=== PATIENT | male | born 2000 | race Caucasian/White ===

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

== ENCOUNTER 2022-11-26 00:47 | Emergency (ER) | payer BC, SELFPAY ==
[2022-11-26 00:48] VITALS: BP 132/85; PULSE 86; RESP 18; TEMP 35.8; O2SAT 98; BMI 18.3
--- NOTE | 2022-11-26 02:01 | EDS_ITS ---
HPI HPI - Psych History of Present Illness Chief Complaint: Suicidal Informant: patient Narrative Narrative: Patient presents because of suicidal thoughts and ideation. He states normally he would never kill himself, but he states occasionally I trick myself, basically saying that he felt so poorly that he wanted to kill himself but he does not think he would be able to. However tonight he gestured attempting to choke himself but he states this only lasted 5 or 10 seconds until he gave up. He has no physical symptoms now. Denies any recent illness. Has not drink any alcohol tonight. Thinks maybe he had a panic attack earlier and it made him feel tingly all over that is starting to fade. Denies any illicit drug use. He sees a therapist for his depression and anxiety. [facility] Medical History Depression Home Medications fluoxetine 20 mg capsule 20 mg PO DAILY 11/26/22 [History Last Taken Unknown] lorazepam 1 mg tablet (Ativan) 1 mg PO TID PRN anxiety #12 tabs 11/26/22 [Rx Last Taken Unknown] Allergy/AdvReac Type Severity Reaction Status Date / Time No Known Allergies Allergy Verified 11/26/22 00:48 Social History Smoking Status: Never smoker ROS ROS ED Constitutional Constitutional ED: Denies chills or fever(s) Eyes Eyes: Denies change in vision or diplopia ENT ENT ED: Denies rhinorrhea or sore throat Cardiovascular Cardiovascular: Denies chest pain or palpitations Respiratory/Chest Respiratory/Chest: Denies cough or dyspnea Gastrointestinal Gastrointestinal: Denies abdominal pain, diarrhea, nausea or vomiting Genitourinary Genitourinary ED: Denies dysuria or hematuria Musculoskeletal Musculoskeletal: Denies back pain or neck pain Integumentary Denies abscess or rash Neurologic Neurologic: Reports paresthesias; Denies headache(s) or weakness Psychiatric Psychiatric: Reports anxiety, depression, suicidal ideation and suicidal thoughts; Denies homicidal ideation EXAM Physical Exam Const Vital Signs: 11/26/22 00:48 11/26/22 02:09 Temperature 96.4 F L Temperature Source Temporal Pulse Rate 86 Respiratory Rate 18 18 Blood Pressure 132/85 H Blood Pressure Mean 100 Pulse Ox 98 Oxygen Delivery Method Room Air Positive well nourished and well developed General Appearance ED: well developed and NAD HEENT Reports moist mucous membranes normocephalic and atraumatic Eyes PERRL and EOMs intact bilaterally General Eye ED: Negative for scleral icterus Neck no lymphadenopathy and supple Resp normal respiratory effort and clear to auscultation bilaterally Cardio no murmurs Rate: regular rate Rhythm: regular rhythm GI non-tender and non-distended Auscultation: normoactive bowel sounds Palpation: soft Back/Spine no CVA tenderness and normal ROM Extremity normal to inspection General Extremety ED: Negative for edema General Extremity: Negative for edema Neuro oriented x3, CN's II-XII intact bilaterally, no sensory deficits noted and gait normal Sensorium / Orientation: alert Motor Exam: strength 5/5 throughout Psych mental status grossly normal, thought process normal, cooperative, activity/motor behavior normal and denies homicidal ideation Speech: normal speech Mood & Affect: depressed and anxious Thought Process: normal thought process Thought Content: suicidality Attention / Concentration: attention grossly intact Memory / Cognition: memory grossly intact Insight: questionable Skin Lesions: no lesions Rashes: no rashes MDM MDM MDM Narrative Medical decision making narrative: Other than marijuana on his toxicology screen, the rest of his labs are unr emarkable and he is medically cleared. Crisis evaluated. His odd affect made it difficult for them to make recommendations, but in the end, the patient states to them as well as myself I could never kill myself. I think the patient is having a severe anxiety attack, leading to suicidal thoughts which she agrees with, crisis spoke with him further and he agrees to contract for safety, and they were able to mutually come up with a safety plan. Lives with mother right now apparently he was okay with that as well, asks if we would be okay prescribing him some Ativan to use as needed for anxiety which we gave him here in the ER, which I am fine with. Lab Data Attestation: I reviewed the patient's lab results. Labs: Laboratory Results - last 24 hr 11/26/22 02:05 WBC 10.6 RBC 4.75 Hgb 14.5 Hct 42.1 MCV 88.6 MCH 30.5 MCHC 34.4 RDW Std Deviation 36.9 RDW Coeff of Ed 11.4 L Plt Count 271 MPV 9.5 Immature Gran % (Auto) 0.300 Neut % (Auto) 72.3 H Lymph % (Auto) 17.4 L [place] % (Auto) 8.9 Eos % (Auto) 0.7 Baso % (Auto) 0.4 Absolute Neuts (auto) 7.7 Absolute Lymphs (auto) 1.85 Nucleated RBC % 0 Sodium 137 Potassium 3.0 L Chloride 103 Carbon Dioxide 24.0 Anion Gap 10 BUN 14 Creatinine 0.93 Estim Creat Clear Calc 115.28 Est GFR (MDRD) Af Amer 131 Est GFR (MDRD) Non-Af 108 BUN/Creatinine Ratio 15.0 Glucose 109 H Calcium 9.5 Urine Opiates Screen NEGATIVE Urine Methadone Screen NEGATIVE Ur Barbiturates Screen NEGATIVE Ur Phencyclidine Scrn NEGATIVE Ur Amphetamines Screen NEGATIVE MDMA (Ecstasy) Screen NEGATIVE U Benzodiazepines Scrn NEGATIVE Urine Cocaine Screen NEGATIVE U Cannabinoids Screen POSITIVE H Ur Drug Screen Comment Ethyl Alcohol < 3.0 Management Discussion w/another healthcare provider: distillery worker general/Case management Discharge Plan Triage Chief Complaint: Suicidal ED Provider: Anderson Flanagan Dx/Rx/DC Orders Clinical Impression: Anxiety, Suicidal thoughts Instructions: Anxiety Disorders Tx, CONTRACT, No Harm Prescriptions: New lorazepam [Ativan] 1 mg tablet 1 mg PO TID PRN (Reason: anxiety) Qty: 12 0RF No Action fluoxetine 20 mg capsule 20 mg PO DAILY Patient Comments: TAKE 1 CAPSULE BY MOUTH ONCE DAILY Primary Care Provider: Darron Barrow Referrals: Darron Barrow MD [Primary Care Provider] - As soon as possible (and/or your therapist/counselor) Disposition Disposition: Home, Self Care
[2022-11-26 02:09] VITALS: RESP 18
[2022-11-26 02:16] LABS: Absolute Lymphocyte Count 1.85 X10^3/uL (0.83-4.51); Absolute Neutrophil Count 7.7 X10^3/uL (2.0-7.7); Basophil# 0.04 X10^3/uL; Basophil% 0.4 % (0-1); Eosinophil# 0.07 X10^3/uL; Eosinophils% 0.7 % (0-5); Hematocrit 42.1 % (40-54); Hemoglobin 14.5 g/dL (13.0-16.5); Lymphocyte # 1.85 X10^3/ul (0.83-4.51); Lymphocyte % 17.4 % (19-41); Mean Corp Hgb Conc 34.4 g/dL (32-36); Mean Corpuscular Hgb 30.5 pg (27.0-32.0); Mean Corpuscular Volume 88.6 fL (80-94); Mean Platelet Vol. 9.5 fl (6.2-12.0); Monocyte# 0.95 X10^3/uL; Monocyte% 8.9 % (0-10); NRBC Flagged by Analyzer 0 % (0-5); Neutrophil # 7.69 X10^3/uL (2.7-7.7); Neutrophil % 72.3 % (47-70); Platelet Count 271 K/mm3 (150-450); RBC Distribution Width CV 11.4 % (11.6-14.6); RBC Distribution Width SD 36.9 fl (35.1-43.9); Red Blood Count 4.75 M/mm3 (4.6-6.2); White Blood Count 10.6 K/mm3 (4.4-11.0)
[2022-11-26 02:32] LABS: Amphetamine Urine VISTA NEGATIVE (<1000 ng/mL); Barbiturate Urine VISTA NEGATIVE (< 200 ng/mL); Benzodiazepine Urine VISTA NEGATIVE (< 200 ng/mL); Cocaine Urine VISTA NEGATIVE (< 300 ng/mL); Ecstacy Urine VISTA NEGATIVE (< 500 ng/mL); Methadone Urine VISTA NEGATIVE (< 300 ng/mL); PCP Urine VISTA NEGATIVE (< 25 ng/mL); THC Urine VISTA POSITIVE (< 50 ng/mL); Vista UDS pH Range 7
[2022-11-26 02:37] LABS: Anion Gap 10 (5-15); BUN 14 mg/dL (7-18); Calcium,Total 9.5 mg/dL (8.5-10.1); Chloride 103 mmol/L (98-107); Creatinine, Serum 0.93 mg/dL (0.70-1.30); EST Glomerular Filtration Rate 108 mL/min (>60); Est Glom Filt Rate - Afr Amer 131 mL/min (>60); Estimated Creatinine Clearance 115.28 ml/min; Glucose 109 mg/dL (74-106); Sodium Level 137 mmol/L (136-145)
[2022-11-26 02:43] LABS: Alcohol, Blood (Medical)-Serum < 3.0 mg/dL
--- NOTE | 2022-11-26 03:03 | NURSING ---
CALLED CRISIS AT 0300
[2022-11-26] MEDS: LORazepam 1 MG Tablet PO (03:44)
== END 2022-11-26 05:59 | disposition home or self-care (01) ==
PROVIDERS: Emergency Provider Emergency Medicine; PCP Pediatrics; Visit Provider Emergency Medicine
DX: F41.9 Anxiety disorder, unspecified (principal); R45.851 Suicidal ideations; Z79.899 Other long term (current) drug therapy
CPT/HCPCS: 80048; 80307; 82077; 85025; 87811; 99285

== ENCOUNTER 2022-11-26 16:38 | Emergency (ER) | payer BC, SELFPAY ==
[2022-11-26 16:40] VITALS: BP 99/67; PULSE 90; RESP 18; TEMP 36.4; O2SAT 100; BMI 18.1
--- NOTE | 2022-11-26 16:50 | NURSING ---
CALLED CRISIS ABOUT PATIENT
--- NOTE | 2022-11-26 17:12 | EDS_ITS ---
<Statement entered by Domitila Norman MD - 11/26/22 22:37> I have personally performed a face to face assessment of the patient and have reviewed the MARCY Note. Patient returns to the ER secondary to continued anxiety and depression with thoughts of harming himself. Patient was seen in the emergency room late last night or early this morning with similar. He had had an attempt to choke himself briefly last night. Patient seemed improved and was able to be contracted for safety. He was given a prescription for Ativan. Patient states that he does not feel that he can keep himself safe today in spite of the safety plan. He returns feeling that he needs placement for further care. Patient does admit to suicidal ideation, but states it is very brief and intermittent. It is very spontaneous and he will just look to what ever is in his environment at the time to try to hurt himself. He has not attempted to hurt himself today. Patient sitting upright in bed no acute distress. Head and neck examination reveals linear abrasions on the anterior lateral neck bilaterally. He states this is from the choking incident yesterday. Heart is regular rate and rhythm. Lung sounds are clear. Abdomen is soft and nontender. Patient's visit from yesterday is reviewed. Lab work was repeated. No acute findings are noted. Patient was discussed with counseling center and patient will be placed. At this time he has been accepted at [facility] for further treatment and care. HPI HPI - Psych History of Present Illness Chief Complaint: Mental Health Narrative Narrative: Patient presenting today due to anxiety and depression requesting that he could be placed in psychiatric facility. He reports that he was seen here last night due to intermittent thoughts of suicide and self-harm and was ultimately safety planned and discharged home. He reports that he does not have a plan, however, he feels that he needs more intensive treatment. He reports that he will begin to have panic attacks and the only way to make that feeling go away is to have thoughts of hurting himself. Patient reports that he wants to hurt himself because, I deserve it. Patient is not currently in therapy. He does admit to occasional marijuana use and denies any other substance use. He denies auditory/tactile/visual hallucinations and thoughts of harming others. [facility] Medical History Depression Home Medications fluoxetine 20 mg capsule 20 mg PO DAILY 11/26/22 [History Last Taken Unknown] lorazepam 1 mg tablet (Ativan) 1 mg PO TID PRN anxiety #12 tabs 11/26/22 [Rx Last Taken 11/26/22] Allergy/AdvReac Type Severity Reaction Status Date / Time No Known Allergies Allergy Verified 11/26/22 16:39 Social History Smoking Status: Current every day smoker tobacco type: cigarettes ROS ROS ED Constitutional Constitutional ED: Denies chills or fever(s) Cardiovascular Cardiovascular: Denies chest pain Respiratory/Chest Respiratory/Chest: Denies cough or dyspnea Gastrointestinal Gastrointestinal: Denies abdominal pain, nausea or vomiting Musculoskeletal Musculoskeletal: Denies arthralgias or myalgias Integumentary Denies Abrasions Neurologic Neurologic: Denies weakness Psychiatric Psychiatric: Reports anxiety, depression and suicidal ideation; Denies auditory hallucinations, hallucinations, homicidal ideation or tactile hallucinations EXAM Physical Exam Const Vital Signs: 11/26/22 16:40 Temperature 97.6 F L Temperature Source Temporal Pulse Rate 90 Respiratory Rate 18 Blood Pressure 99/67 Blood Pressure Mean 77 Pulse Ox 100 Oxygen Delivery Method Room Air Positive well nourished, well developed and no apparent distress General Appearance ED: well developed HEENT Reports normocephalic and head/scalp atraumatic Mouth ED: Yes moist mucous membranes normal Eyes PERRL and EOMs intact bilaterally Neck full ROM and supple Chest Wall inspection of chest normal Resp normal respiratory effort and clear to auscultation bilaterally Cardio regular rate and regular rhythm GI soft to palpation, non-tender, non-distended and no masses Back/Spine normal ROM and normal to inspection Extremity normal to inspection and full ROM Neuro oriented x3, CN's II-XII intact bilaterally, moves all extremities, no focal motor deficits and no sensory deficits noted Sensorium / Orientation: awake and alert Psych mental status grossly normal and cooperative Appearance: grossly normal Attitude: withdrawn and guarded Activity / Motor Behavior: avoids eye contact Speech: soft Mood & Affect: depressed and apathetic Skin no rashes or lesions noted and no wounds MDM MDM MDM Narrative Medical decision making narrative: Patient presenting today requesting to be placed in an inpatient psychiatric facility. He reports that he has had intermittent thoughts of suicide and self- harm that has been worsening. He does report a history of anxiety and depression that has gotten worse. He was seen here in the ED last night and was ultimately safety plan and discharged home. Patient and his mom feel that he needs more intensive treatment than just a safety plan. Patient reports that he is scared that he will harm himself or others if this goes untreated. He does not currently feel suicidal. Patient did have prescreening labs today, however he was found to be hypokalemic at that time. Labs will be repeated today and are WNL. Crisis will be evaluating patient. Patient is cleared for psychiatric placement. Lab Data Attestation: I reviewed the patient's lab results. Labs: Laboratory Results - last 24 hr 11/26/22 17:40 WBC 5.1 RBC 4.84 Hgb 15.1 Hct 43.6 MCV 90.1 MCH 31.2 MCHC 34.6 RDW Std Deviation 38.5 RDW Coeff of Ed 11.6 Plt Count 254 MPV 9.1 Immature Gran % (Auto) 0.400 Neut % (Auto) 57.8 Lymph % (Auto) 27.5 [place] % (Auto) 13.1 H Eos % (Auto) 0.8 Baso % (Auto) 0.4 Absolute Neuts (auto) 3.0 Absolute Lymphs (auto) 1.41 Nucleated RBC % 0 Sodium 141 Potassium 3.8 Chloride 107 Carbon Dioxide 28.0 Anion Gap 6 BUN 15 Creatinine 0.91 Estim Creat Clear Calc 116.08 Est GFR (MDRD) Af Amer 134 Est GFR (MDRD) Non-Af 111 BUN/Creatinine Ratio 16.5 Glucose 93 Calcium 9.5 Ur Drug Screen Comment Ethyl Alcohol < 3.0 Discharge Plan Triage Chief Complaint: Mental Health ED Midlevel Provider: Catrina Miller ED Provider: Domitila Norman Dx/Rx/DC Orders Clinical Impression: Suicidal thoughts, Anxiety Prescriptions: No Action fluoxetine 20 mg capsule 20 mg PO DAILY Patient Comments: TAKE 1 CAPSULE BY MOUTH ONCE DAILY lorazepam [Ativan] 1 mg tablet 1 mg PO TID PRN (Reason: anxiety) Qty: 12 0RF Primary Care Provider: Darron Barrow Referrals: Darron Barrow MD [Primary Care Provider] - Disposition Disposition: Psychiatric Hospital or Unit [facility]
[2022-11-26 17:57] LABS: Absolute Lymphocyte Count 1.41 X10^3/uL (0.83-4.51); Basophil# 0.02 X10^3/uL; Basophil% 0.4 % (0-1); Eosinophil# 0.04 X10^3/uL; Eosinophils% 0.8 % (0-5); Hematocrit 43.6 % (40-54); Hemoglobin 15.1 g/dL (13.0-16.5); Lymphocyte # 1.41 X10^3/ul (0.83-4.51); Lymphocyte % 27.5 % (19-41); Mean Corp Hgb Conc 34.6 g/dL (32-36); Mean Corpuscular Hgb 31.2 pg (27.0-32.0); Mean Corpuscular Volume 90.1 fL (80-94); Mean Platelet Vol. 9.1 fl (6.2-12.0); Monocyte# 0.67 X10^3/uL; Monocyte% 13.1 % (0-10); NRBC Flagged by Analyzer 0 % (0-5); Neutrophil # 2.96 X10^3/uL (2.7-7.7); Neutrophil % 57.8 % (47-70); Platelet Count 254 K/mm3 (150-450); RBC Distribution Width CV 11.6 % (11.6-14.6); RBC Distribution Width SD 38.5 fl (35.1-43.9); Red Blood Count 4.84 M/mm3 (4.6-6.2); White Blood Count 5.1 K/mm3 (4.4-11.0)
[2022-11-26 18:25] LABS: Alcohol, Blood (Medical)-Serum < 3.0 mg/dL
[2022-11-26 18:27] LABS: Anion Gap 6 (5-15); BUN 15 mg/dL (7-18); BUN/Creat Ratio 16.5 RATIO (10-20); Calcium,Total 9.5 mg/dL (8.5-10.1); Chloride 107 mmol/L (98-107); Creatinine, Serum 0.91 mg/dL (0.70-1.30); EST Glomerular Filtration Rate 111 mL/min (>60); Est Glom Filt Rate - Afr Amer 134 mL/min (>60); Estimated Creatinine Clearance 116.08 ml/min; Glucose 93 mg/dL (74-106); Potassium 3.8 mmol/L (3.5-5.1); Sodium Level 141 mmol/L (136-145)
--- NOTE | 2022-11-26 19:00 | ED.RN ---
1646 per PALAK Edmond., pt. does not require a sitter as long as there is a parent/family at the bedside
--- NOTE | 2022-11-26 22:13 | ED.RN ---
[facility] ETA 010
[2022-11-26 22:49] LABS: Amphetamine Urine VISTA NEGATIVE (<1000 ng/mL); Barbiturate Urine VISTA NEGATIVE (< 200 ng/mL); Benzodiazepine Urine VISTA NEGATIVE (< 200 ng/mL); Cocaine Urine VISTA NEGATIVE (< 300 ng/mL); Ecstacy Urine VISTA NEGATIVE (< 500 ng/mL); Methadone Urine VISTA NEGATIVE (< 300 ng/mL); PCP Urine VISTA NEGATIVE (< 25 ng/mL); THC Urine VISTA POSITIVE (< 50 ng/mL); Vista UDS pH Range 6
[2022-11-26 23:44] VITALS: BP 110/70; PULSE 76; RESP 16; TEMP 36.7; O2SAT 96
[2022-11-27] MEDS: LORazepam 1 MG Tablet PO (00:12)
== END 2022-11-27 00:13 ==
PROVIDERS: Physician Assistant; Emergency Provider Emergency Medicine; PCP Pediatrics; Visit Provider Emergency Medicine
DX: R45.851 Suicidal ideations (principal); F41.9 Anxiety disorder, unspecified; F32.A Depression, unspecified; F17.210 Nicotine dependence, cigarettes, uncomplicated; F12.90 Cannabis use, unspecified, uncomplicated; Z79.899 Other long term (current) drug therapy
CPT/HCPCS: 80048; 80307; 82077; 85025; 87428; 99285